=== PATIENT | female | born 1965 | race Caucasian/White ===

== ENCOUNTER 2016-06-02 19:40 | Emergency (ER) | payer SELFPAY ==
[2016-06-02 19:53] VITALS: TEMP 98.4; BMI 41.0
--- NOTE | 2016-06-02 21:41 | EDPRACDOC ---
- General Information Chief Complaint: Lower Leg Pain Stated Complaint: RIGHT LOWER LEG SWELLING Time Seen by Provider: 06/02/16 21:30 Information Source: Patient Home Medications: Home Medications Ibuprofen 600 mg PO BID 07/24/15 Ketorolac Tromethamine 10 mg PO Q6H PRN #20 tab 07/24/15 Metoprolol Succinate (XL) [Toprol Xl] 25 mg PO DAILY #120 tab 07/24/15 Ondansetron [Zofran Odt] 4 mg PO Q6H PRN #20 tab.rapdis 07/24/15 Oxycodone HCl/Acetaminophen [Percocet 5-325 mg Tablet] 1 tab PO Q6-8H PRN #20 tab 07/24/15 Tamsulosin HCl [Flomax] 0.4 mg PO DAILY #30 cap 07/24/15 Ciprofloxacin HCl [Cipro] 1 tab PO BID 08/07/15 Hydrocodone/Acetaminophen [Lortab 7.5-325 mg Tablet] 1 tab PO Q6H PRN 08/07/15 Allergies/Adverse Reactions: Allergies Allergy/AdvReac Type Severity Reaction Status Date / Time No Known Allergies Allergy Verified 08/07/15 06:50 - History of Present Illness Onset: today Medications/Treatment [employer]Y [employer]NER Nitroglycerin (Dose/Time) 800mg IBU at 1300 HPI: PT PRESENTS WITH LEG PAIN FOR MONTHS WITH RECENT SWELLING OF HER RIGHT LOWER LEG. Circumstances: Reports: None Able to Bear Weight: Fully - Treatment Prior to ED Arrival Reported Medications/Treatment [employer]Y [employer] Nitroglycerin (Dose/Time) 800mg IBU at 1300 ED Past Medical History - History Reviewed Yes Nurses notes reviewed and agree except as marked - Patient Medical History Cardiac History: Reports: Hypertension Respiratory History: Reports: COPD GI/ History: Reports: Urinary Tract Infection (? current), Kidney Stones, Ulcer (? ulcer) Psychological History: Reports: Depression - Family Medical History Reports: Hypertension (siblings), Diabetes (mom,brother), Cardiac Disorders (dad ). Denies: Cancer, Stroke - Social Medical History Smoking Status: Heavy tobacco smoker (5 or more cigarettes/day or daily pipe/ cigar) Lives With: Family Lives In: Home EDM Review of Systems - Review of Systems ROS Negative Except as Marked: Yes All systems reviewed and were negative except as marked Musculoskeletal: Leg (RIGHT LOWER LEG PAIN) - Physical Exam Constitutional: Alert Oriented to: Time, Person, Place Last recorded Vital Signs: Last Vital Signs Temp 98.4 F 06/02/16 19:48 Pulse 78 06/02/16 19:48 Resp 20 06/02/16 19:48 BP 193/97 H 06/02/16 19:48 Pulse Ox 96 06/02/16 19:48 Oxygen Pulse Oxygen Saturation 96 O2 Device Room Air Oxygen Flow Rate Fraction of Inspired Oxygen ( FIO2) - HEENT Head: negative: Deformity, Laceration Eye Exam: negative: Conjunctival Injection, Pale Conjunctiva Oropharynx: negative: Membranes Dry Nose: negative: Congestion, Discharge Neck: negative: Limited ROM - Respiratory/Cardiovascular Respiratory: Normal - CTA. negative: Accessory Muscle Use, Diminished, Tachypnea Cardiovascular: negative: Bradycardia, Tachycardia, Irregular - Integumentary Skin: Warm, Dry - Neurologic Memory Impaired: Normal Motor Function: Normal Mood Description: Anxious, Appropriate Thought: Coherent Perception: Normal ED Low Extremities Phys Exam - Lower Leg Right Lower Leg Symptoms: Swelling, Mild Tenderness. negative: Deformity - Results 06/02/16 21:45 06/02/16 21:45 - EKG EKG #1 EKG Time: 22:19 -: Yes EKG interpreted by me Rate: bpm: 69 [place]: Normal Rhythm: NSR Block: None Hypertrophy: None ST: Normal Decision Time to Discharge: 00:06 - Departure Yes I personally saw and evaluated the patient. Disposition: Home Condition: Stable Final Diagnosis: Pedal edema Instructions: Leg Edema (ED) Education/Counseling Given To: Patient Education/Counseling Given Regarding: Diagnosis, Treatment, Prognosis, Follow Up Referrals: Gunner Long MD [Primary Care Provider] - Call for Appointment
[2016-06-02 21:56] LABS: AUTOMATED BASOPHIL 0.9 % (0-2); AUTOMATED EOSINOPHIL 5.8 % (0-5); AUTOMATED LYMPH 31.6 % (17-44); AUTOMATED NEUTROPHIL 53.7 % (45-76); MPV 7.2 fL (7.4-10.4)
[2016-06-02 22:08] LABS: PARTIAL THROMB. TIME 29.1 SEC (22-35)
[2016-06-02 22:10] LABS: SODIUM LEVEL 139 mEq/L (137-146)
[2016-06-02 22:52] LABS: BLOOD UREA NITROGEN 17 MG/DL (7-17); CALC CORRECTED 10.3 MG/DL (8.4-10.2); CALCIUM 9.9 MG/DL (8.4-10.2); CALCULATED OSMOLALITY 269 MOs/Kg (270-290); CHLORIDE 104 mEq/L (98-107); GLUCOSE 86 MG/DL (70-99)
--- NOTE | 2016-06-02 23:59 | DIRPT ---
CLINICAL DATA: Acute onset of right leg swelling and pain. Initial encounter. EXAM: RIGHT LOWER EXTREMITY VENOUS DOPPLER ULTRASOUND TECHNIQUE: Burnett-scale sonography with graded compression, as well as color Doppler and duplex ultrasound were performed to evaluate the lower extremity deep venous systems from the level of the common femoral vein and including the common femoral, femoral, profunda femoral, popliteal and calf veins including the posterior tibial, peroneal and gastrocnemius veins when visible. The superficial great saphenous vein was also interrogated. Spectral Doppler was utilized to evaluate flow at rest and with distal augmentation maneuvers in the common femoral, femoral and popliteal veins. COMPARISON: None. FINDINGS: Contralateral Common Femoral Vein: Respiratory phasicity is normal and symmetric with the symptomatic side. No evidence of thrombus. Normal compressibility. Common Femoral Vein: No evidence of thrombus. Normal compressibility, respiratory phasicity and response to augmentation. Saphenofemoral Junction: No evidence of thrombus. Normal compressibility and flow on color Doppler imaging. Profunda Femoral Vein: No evidence of thrombus. Normal compressibility and flow on color Doppler imaging. Femoral Vein: No evidence of thrombus. Normal compressibility, respiratory phasicity and response to augmentation. Popliteal Vein: No evidence of thrombus. Normal compressibility, respiratory phasicity and response to augmentation. Calf Veins: No evidence of thrombus. Normal compressibility and flow on color Doppler imaging. Superficial Great Saphenous Vein: No evidence of thrombus. Normal compressibility and flow on color Doppler imaging. Venous Reflux: None. Other Findings: A complex popliteal cyst is noted at the right popliteal fossa, measuring 6.0 x 1.1 x 3.3 cm, with mild internal echoes. No associated blood flow is seen on limited Doppler evaluation. IMPRESSION: 1. No evidence of deep venous thrombosis. 2. Complex right-sided Bender's cyst noted, measuring 6.0 x 1.1 x 3.3 cm. Electronically Signed By: Josh Garzon M.D. On: 06/02/2016 23:56
[2016-06-03 00:14] VITALS: BP 153/67; PULSE 66
== END 2016-06-03 00:13 | disposition home or self-care (01) ==
LOC: ED 19:40
DX: R60.9 Edema, unspecified (principal); I10 Essential (primary) hypertension; J44.9 Chronic obstructive pulmonary disease, unspecified; F32.9 Major depressive disorder, single episode, unspecified; F17.200 Nicotine dependence, unspecified, uncomplicated; Z79.899 Other long term (current) drug therapy
CPT/HCPCS: 36415; 80053; 84484; 85025; 85610; 85730; 93005; 99283